=== PATIENT | male | born 1955 | race Caucasian/White ===

== ENCOUNTER 2017-03-23 18:22 | Emergency (ER) | payer OTHER ==
[~2017-03-23] VITALS: Ht 165.1 cm; Wt 78.9 kg
[2017-03-23 18:22] VITALS: BP 141/84
[2017-03-23] MEDS ORDERED: LISI10TA4 (18:39)
[2017-03-23] MEDS ORDERED: SIMV20TA2 (18:39)
[2017-03-23] MEDS ORDERED: ADACEL/BOOSTRIX VACCINE (DIPHTH/PERTUSS/ACELL/TETANUS)0.5ML SYR (90715) IM ONE (20:00)
[2017-03-23] MEDS ORDERED: KEFL500C17 PO (20:45)
== END 2017-03-23 20:53 | disposition home or self-care (01) ==
LOC: M ED 18:22
DX: S51.812A Laceration without foreign body of left forearm, initial encounter (principal); W27.0XXA Contact with workbench tool, initial encounter; Y92.099 Unspecified place in other non-institutional residence as the place of occurrence of the external cause; Y93.89 Activity, other specified; Y99.9 Unspecified external cause status; I10 Essential (primary) hypertension; E78.5 Hyperlipidemia, unspecified; Z79.899 Other long term (current) drug therapy

== ENCOUNTER → 2020-08-03 | Outpatient (CLI) | payer MEDICARE, OTHER ==
[~2020-08-03] MED LIST: ASPI81TA26 PO; KEFL500C17 PO; LISI10TA4; LISI10TA4 PO; SIMV20TA22; SIMV20TA22 PO
== END ==
LOC: M LABSMTC 10:39
PROVIDERS: ATTEND Anesthesiology
DX: Z01.812 Encounter for preprocedural laboratory examination (principal); Z20.822 Contact with and (suspected) exposure to COVID-19

== ENCOUNTER 2020-08-08 10:44 | Day surgery (SDC) | payer MEDICARE, OTHER ==
[~2020-08-08] VITALS: Ht 165.1 cm; Wt 76.7 kg
[~2020-08-08 10:44] MED LIST changes: +NS 1,000 ML IV ONE
--- OUTSIDE RECORDS SUMMARY | 2020-08-08 10:48 | CCD | Continuity of Care Document ---
Author Author Dakota FIERRO [facility] Organization Unknown Address [address] [place] [address] Phone [phone] Care Team Providers Care Dynamiter Name Role Phone Nara Fierro [facility] AUTM [phone] Problems Active Problems Provider Date Essential hypertension Alvino Yen D.O. Onset: 10/2010 Pure hypercholesterolemia Alvino eYn D.O. Onset: 02/12/2011 Social History Type Date Description Comments Sex Unknown ETOH Use Occasionally consumes beer Tobacco Use Start: Unknown End: Unknown Patient is a former smoker SMOKED FOR 12YRS 2 PAKS A DAY Recreational Drug Use Denies Drug Use Exercise Type/Frequency Exercises regularly 4-5 times weekly Guns in Home No Allergies, Adverse Reactions, Alerts Description No Known Drug Allergies Medications Active Medications SIG Qnty Indications Ordering Provide r Date Viagra 100mg Tablets one daily as needed before relations 15tabs N52.9 Lior Chavez MD [address] 1 po qd 100tabs Alvino Yen D.O. 08/12/2010 Lisinopril 10mg Tablets take one tablet by mouth every day 90tabs Lior Chavez MD 08/12/2010 Simvastatin 20mg Tablets take one tablet by mouth at bedtime 90tabs Lior Chavez MD 2010 Immunizations CPT Code Status Date Vaccine Lot # [id number] Given 03/25/2020 Shingrix Zoster Vaccine (HZV), Recombinant, Subunit, Adjuvanted 65337 Given 07/20/2019 Shingrix Zoster Vaccine (HZV), Recombinant, Subunit, Adjuvanted 65398 Given 01/11/2012 Pneumovax 23 [id number] Refused 04/25/2018 Influenza Virus Vaccine, Quadrivalent (Cciiv4), Derived From Cell Vital Signs Date Vital Result Comment 07/03/2020 8:04am BP Systolic 126 mmHg RT Arm BP Diastolic 78 mmHg RT Arm Heart Rate 64 /min Height 64.50 inches 5'4.50" Weight 174.00 lb BMI (Body Mass Index) 29.4 kg/m2 11/20/2019 1:44pm BP Systolic 130 mmHg BP Diastolic 78 mmHg Heart Rate 63 /min Height 64.50 inches 5'4.50" Weight 174.00 lb BMI (Body Mass Index) 29.4 kg/m2 Results Test Acquired Date Facility Test Result H/L Range Note Complete Blood Count 07/03/2020 [place] [facility] [employer] [facility]: [place] [address] [phone] WBC 9.0 x10*3/UL 4.1 - 10.9 RBC 4.70 x10*6/UL 4.20 - 6.30 Hemoglobin 15.4 g/dL 12.0 - 18.0 Hematocrit 43.1 % 37.0 - 51.0 MCV 91.5 fL 80.0 - 97.0 MCH 32.7 pg High 26.0 - 32.0 MCHC 35.7 g/dL 31.0 - 38.0 RDW 12.6 % 11.6 - 13.7 PLT 262 x10*3/UL 140 - 440 MPV 7.4 FL Low 7.8 - 11.0 Lymph % 20.3 % 10.0 - 58.5 Mid % 6.0 % 1.7 - 9.3 Neut % 73.7 % 37.0 - 92.0 Lymph # 1.8 x10*3/UL 0.6 - 4.1 Mid # 0.6 x10*3/UL 0.1 - 0.6 Neut # 6.6 x10*3/UL 2.0 - 7.8 Comprehensive Chem Profile 07/03/2020 [facility]: [place] [address] [phone] Glucose 96 mg/dL 74 - 99 1 BUN 20 mg/dL High 7 - 18 Creatinine 1.3 mg/dL 0.6 - 1.3 Sodium 141 mEq/L 136 - 145 Potassium 4.2 mEq/L 3.5 - 5.1 Chloride 105 mEq/L 98 - 107 Carbon Dioxide 28 mEq/L 21 - 32 Calcium 8.5 mg/dL 8.5 - 10.1 Alk. Phosphatase 67 mg/dL 46 - 116 Total Bilirubin 0.5 mg/dL 0.2 - 1.0 Ast (Sgot) 25 U/L 15 - 37 Alt (SGPT) 44 U/L 12 - 78 Albumin 4.1 g/dL 3.4 - 5.0 Total Protein 6.8 g/dL 6.4 - 8.2 A/G Ratio 1.52 CALC 1.00 - 1.90 GFR 55 mL/min Low >60 GFR >= 60 mL/min >60 2 Lipid Profile 07/03/2020 [facility] , Rn Corrections: Dr Lior Chavez [place], [place] [id number] [phone] Cholesterol 156 mg/dL 131 - 200 Triglycerides 51 mg/dL 30 - 150 HDL Cholesterol 41 mg/dL 35 - 60 LDL (Calculated) 105 CALC 50 - 159 Laboratory test finding 07/03/2020 [facility] Rn Corrections: [place] [address] [phone] PSA 0.41 ng/mL <4.00 3 1 100-125 mg/dL PRE-DIABET ES/FASTING >126 mg/dL DIABETES/FASTING 2 CHRONIC KIDNEY DISEASE STAGI NG PER NKF STAGE I & II GFR >= 60 NORMAL TO MILDLY DECREASED STAGE III GFR 30-59 MODERATELY DECREASED STAGE IV GFR 15-29 SEVERELY DECREASED STAGE V GFR <15 VERY LITTLE GFR LEFT ESRD GFR <15 ON PRINTED CIRCUIT BOARDS SOLDER LEVELER 3 This assay was performed on the [employer] EXL using the B- Galactosidase/CPRG methodology and should not be compared interchangeably with other methods. The PSA should not be used alone as a screening test for the presence or absence of malignant disease. Procedures Date Code Description Status 11/12/2008 52857325 Colonoscopy Completed Medical Devices Description No Information Available Encounters Description No Information Available Assessments Date Code Description Provider 07/03/2020 N52.9 Male erectile dysfunction, unspe cified BRIGITTE Morales 07/03/2020 I10 Essential (primary) hypertension Nara Fierro [facility] 07/03/2020 E78.00 Pure hypercholesterolemia, unspe cified Nara Fierro, PLAYER DEVELOPMENT EXECUTIVE 07/03/2020 L71.9 Rosacea, unspecified Nara Mars ra, [facility] 07/03/2020 R39.15 Urgency of urination Nara Mars ra, [facility] 07/03/2020 E66.3 Overweight Nara Fierro, F ENVIRONMENTAL GEOLOGIST Plan of Treatment Future Appointment(s):* 07/09/2021 7:40 am - Nurse #2 at [facility] * 07/09/2021 8:00 am - BRIGITTE Morales at [facility] 07/03/2020 - BRIGITTE Morales* N52.9 Male erectile dysfunction, unspecified* New Medication:* Viagra 100 mg - one daily as needed before relations * Comments:* Trial Viagra. Given a good RX card as I explained most insurance companies do not cover this. * I10 Essential (primary) hypertension* Comments:* BP at goal. Continue Lisinopril. BMP is pending. Should periodically take BPs outside of the office. * Recommendations:* Weight loss is recommended. DASH diet is recommended, regular exercise, and balanced diet with several fresh fruits and vegetables. * E78.00 Pure hypercholesterolemia, unspecified* Comments:* Check lipids today. Continues on Simvastatin. Encouraged Mediterranean diet; Low fat/high fiber diet encouraged coupled with regular exercise. * L71.9 Rosacea, unspecified* Comments:* No longer using Metronidazole and skin is clear. * R39.15 Urgency of urination* Comments:* Check PSA. Occasional. * E66.3 Overweight* Comments:* Weight loss would be favorable- portion control, balanced diet and regular exercise are encouraged. * All * Comments:* Needs to repeat colonoscopy. Follow up in one year with repeat labs at that time.Encouraged balanced diet, 4-5 servings of fresh fruits and vegetables daily. Recommended at least 30 minutes of exercise daily and eight 8 oz. glasses of water daily.Testicular self exams encouraged monthly.RTC PRN for acute illness. COVID precautions are discussed and social distancing/mask use/ frequent hand washing and sanitizing are encouraged. Functional Status Description No Information Available Mental Status Description No Information Available Referrals Description No Information Available
--- OUTSIDE RECORDS SUMMARY | 2020-08-08 10:48 | CCD | Continuity of Care Document ---
Author Author Dakota ORTIZ MD Organization Unknown Address [address] [place] [address] Phone [phone] Care Team Providers Care Staff Psychiatrist Name Role Phone Nara Fierro AUTM [phone] Problems Active Problems Provider Date Essential hypertension Tristen Pereira NP Onset: 07/09/2020 Social History Type Date Description Comments Sex Unknown ETOH Use Occasionally consumes alcohol Recreational Drug Use Denies Drug Use Tobacco Use Start: Unknown End: Unknown Patient is a former smoker QUIT 1980 Allergies, Adverse Reactions, Alerts Description No Known Drug Allergies Medications Active Medications SIG Qnty Indications Ordering Provide r Date Lisinopril 10mg Tablets 1 qd Unknown Simvastatin 20mg Tablets 1 qd Unknown Aspirin 81mg Tablets DR 1 by mouth every day Unknown Viagra 100mg Tablets 1 prn Unknown Immunizations Description No Information Available Vital Signs Date Vital Result Comment 07/24/2020 11:18am BP Systolic 146 mmHg BP Diastolic 88 mmHg Height 65 inches 5'5" Weight 173.00 lb BMI (Body Mass Index) 28.8 kg/m2 [place] Body Weight 136 lb Weight 78.473 kg BSA (Body Surface Area) 1.86 m2 Results Description No Information Available Procedures Description No Information Available Medical Devices Description No Information Available Encounters Description No Information Available Assessments Description No Information Available Plan of Treatment No Information Available Functional Status Description No Information Available Mental Status Description No Information Available Referrals Refer to Reason for Referral Status Appt Date Navin Ortiz JR, MD SCHEDULE SCOPE. Scheduled [address] [place] [id number] [phone]
--- OUTSIDE RECORDS SUMMARY | 2020-08-08 10:48 | CCD | Continuity of Care Document ---
Author Author Dakota FIERRO [facility] Organization Unknown Address [address] [place] [address] Phone [phone] Care Team Providers Care Non Destructive Evaluation Manager Name Role Phone Nara Fierro [facility] AUTM [phone] Problems Active Problems Provider Date Essential hypertension [...] CPT Code Status Date Vaccine Lot # [id number] Given 03/25/2020 Shingrix Zoster Vaccine (HZV), Recombinant, Subunit, Adjuvanted 18555 Given 07/20/2019 Shingrix Zoster Vaccine (HZV), Recombinant, Subunit, Adjuvanted 15313 Given 01/11/2012 Pneumovax 23 [id number] Refused 04/25/2018 Influenza Virus Vaccine, Quadrivalent (Cciiv4), [...] H/L Range Note Complete Blood Count 07/03/2020 [place] [employer] [facility] Index Clerk: [place] [address] [phone] WBC 9.0 x10*3/UL 4.1 - 10.9 RBC [...] 2.0 - 7.8 Comprehensive Chem Profile 07/03/2020 [facility] Index Clerk: [place] [address] [phone] Glucose 96 mg/dL 74 - 99 1 [...] 60 mL/min >60 2 Lipid Profile 07/03/2020 [place] [facility] , Index Clerk: Dr Lior Chavez [place], [place] [id number] [phone] Cholesterol 156 mg/dL 131 - 200 Triglycerides 51 mg/dL 30 - 150 HDL Cholesterol 41 mg/dL 35 - 60 LDL (Calculated) 105 CALC 50 - 159 Laboratory test finding 07/03/2020 [facility] Index Clerk: [place] [address] [phone] PSA 0.41 ng/mL <4.00 3 1 100-125 mg/dL PRE-DIABET ES/FASTING >126 mg/dL DIABETES/FASTING 2 CHRONIC KIDNEY DISEASE STAGI NG PER NKF STAGE I & II GFR >= 60 NORMAL TO MILDLY DECREASED STAGE III GFR 30-59 MODERATELY DECREASED STAGE IV GFR 15-29 SEVERELY DECREASED STAGE V GFR <15 VERY LITTLE GFR LEFT ESRD GFR <15 ON GROCERY SACKER 3 This assay was performed on the [employer] EXL using the B- Galactosidase/CPRG methodology and should not be compared interchangeably with other methods. The PSA should not be used alone as a screening test for the presence or absence of malignant disease. Procedures Date Code Description Status 11/12/2008 [id number] Colonoscopy Completed Medical Devices Description No Information Available Encounters Type Date Location Provider Dx Diagnosis Office Visit 07/03/2020 8:00a [facility], BRIGITTE Z00.00 Encntr for general adult medical exam w/ o abnormal findings N52.9 Male erectile dysfunction, u nspecified I10 Essential (primary) hyperten zachary E78.00 Pure hypercholesterolemia, u nspecified L71.9 Rosacea, unspecified R39.15 Urgency of urination E66.3 Overweight Z68.29 Body mass index [BMI] 29.0-2 9.9, adult Z12.5 Encounter for screening for malignant neoplasm of prostate Z13.89 Encounter for screening for other disorder Assessments Date Code Description Provider 07/03/2020 Z00.00 Encounter for genera l adult medical examination without abnormal findings Nara Fierro, [facility] 07/03/2020 N52.9 Male erectile dysfunction, unspe cified Nara Fierro, [facility] 07/03/2020 I10 Essential (primary) hypertension Nara Fierro, [facility] 07/03/2020 E78.00 Pure hypercholesterolemia, unspe cified Nara Fierro, [facility] 07/03/2020 L71.9 Rosacea, unspecified Nara Mars ra, PHILOSOPHY FACULTY 07/03/2020 R39.15 Urgency of urination Nara Mars ra, [facility] 07/03/2020 E66.3 Overweight Nara Fierro, F FISHER DIP NET 07/03/2020 Z68.29 Body mass index [BMI] 29.0-29.9, adult AROLDO MoralesP 07/03/2020 Z12.5 Encounter for screening for anand gnant neoplasm of prostate Nara Fierro [facility] 07/03/2020 Z13.89 Encounter for screening for othe r disorder BRIGITTE Morales Plan of Treatment Future Appointment(s):* 07/09/2021 7:40 am - Nurse #2 at [facility] * 07/09/2021 8:00 am - BRIGITTE Morales at [facility] 07/03/2020 - BRIGITTE Morales* Z00.00 Encounter for general adult medical examination without abnormal findings * N52.9 Male erectile dysfunction, unspecified* New Medication:* [...] diet and regular exercise are encouraged. * Z68.29 Body mass index [BMI] 29.0-29.9, adult * Z12.5 Encounter for screening for malignant neoplasm of prostate * Z13.89 Encounter for screening for other disorder * All * Comments:* Needs to repeat [...] frequent hand washing and sanitizing are encouraged. * Referral:* Navin Ortiz JR, MD, Surgery,General Functional Status Description No Information Available Mental Status Description No Information Available Referrals Refer to Dr Reason for Referral Status Appt Date Navin Ortiz JR, MD CONSULT WITH DR ORTIZ FOR SCREENING COLONOSCOPY Patient Notified 07/17/2020 [facility] General Surgery [address] [address] [phone]
--- OUTSIDE RECORDS SUMMARY | 2020-08-08 10:49 | CCD | Continuity of Care Document ---
Author Author Dakota FIERRO [facility] Organization Unknown Address [address] [place] [address] Phone [phone] Care Team Providers Care Limo Driver Name Role Phone Nara Fierro [facility] AUTM [phone] Problems Active Problems Provider Date Essential hypertension Alvino Yen D.O. Onset: 10/2010 Pure hypercholesterolemia Alvino Yen D.O. Onset: 02/12/2011 Social History Type Date [...] CPT Code Status Date Vaccine Lot # [id number] Given 03/25/2020 Shingrix Zoster Vaccine (HZV), Recombinant, Subunit, Adjuvanted 22905 Given 07/20/2019 Shingrix Zoster Vaccine (HZV), Recombinant, Subunit, Adjuvanted 29607 Given 01/11/2012 Pneumovax 23 [id number] Refused 04/25/2018 Influenza Virus Vaccine, Quadrivalent (Cciiv4), [...] Date Facility Test Result H/L Range Note Laboratory test finding 07/03/2020 [facility] [employer] Operation Machine Operator [facility] Rn: Dr Lior Chavez [place], [place] [id number] [phone] PSA <pending> Procedures Date Code Description Status 11/12/2008 [id number] Colonoscopy Completed Medical Devices Description No Information Available Encounters Description No Information Available Assessments Date Code Description Provider 07/03/2020 N52.9 Male erectile dysfunction, unspe cified Nara Fierro, [facility] 07/03/2020 I10 Essential (primary) hypertension Nara Fierro [facility] 07/03/2020 E78.00 Pure hypercholesterolemia, unspe cified Nara Fierro, [facility] 07/03/2020 L71.9 Rosacea, unspecified Nara Mars ra [facility] 07/03/2020 R39.15 Urgency of urination Nara Mars ra [facility] 07/03/2020 E66.3 Overweight Zakia Morales PHOTOGRAPHIC SPOTTER Plan of Treatment 07/03/2020 - Nara Fierro [facility]* N52.9 Male erectile dysfunction, unspecified* New Medication:* Viagra 100 mg - one daily as needed before relations * I10 Essential (primary) hypertension* Comments:* BP [...] balanced diet and regular exercise are encouraged. Functional Status Description No Information Available Mental Status Description No Information Available Referrals Description No Information Available
--- NOTE | 2020-08-08 13:26 | ROOR ---
Patient Name: Dakota Harmon Procedure Date: 08/08/2020 1:10 PM Date of : 1955 Age: 65 Room: [facility] Gender: Male Note Status: Finalized Procedure: Colonoscopy Indications: Screening for colorectal malignant neoplasm Providers: Navin Ortiz Jr, MD Referring MD: Nara Fierro NP Requesting Provider: Medicines: Propofol per Anesthesia Complications: No immediate complications. Procedure: Pre-Anesthesia Assessment: - Prior to the procedure, a History and Physical was performed, and patient medications and allergies were reviewed. The patient is competent. The risks and benefits of the procedure and the sedation options and risks were discussed with the patient. All questions were answered and informed consent was obtained. Patient identification and proposed procedure were verified by the physician and the nurse in the pre-procedure area and in the procedure room. Mental Status Examination: alert and oriented. Airway Examination: normal oropharyngeal airway and neck mobility. Respiratory Examination: clear to auscultation. CV Examination: normal. ASA Grade Assessment: II - A patient with mild systemic disease. After reviewing the risks and benefits, the patient was deemed in satisfactory condition to undergo the procedure. The anesthesia plan was to use moderate sedation / analgesia (conscious sedation). Immediately prior to administration of medications, the patient was re-assessed for adequacy to receive sedatives. The heart rate, respiratory rate, oxygen saturations, blood pressure, adequacy of pulmonary ventilation, and response to care were monitored throughout the procedure. The physical status of the patient was re-assessed after the procedure. The Colonoscope was introduced through the anus and advanced to the cecum, identified by appendiceal orifice and ileocecal valve. The colonoscopy was performed without difficulty. The patient tolerated the procedure well. The quality of the bowel preparation was adequate. Findings: The rectum, recto-sigmoid colon, descending colon, transverse colon, ascending colon, cecum, appendiceal orifice and ileocecal valve appeared normal. Multiple small and large-mouthed diverticula were found in the sigmoid colon. Impression: - The rectum, recto-sigmoid colon, descending colon, transverse colon, ascending colon, cecum, appendiceal orifice and ileocecal valve are normal. - Diverticulosis in the sigmoid colon. - No specimens collected. Recommendation: - Discharge patient to home (ambulatory). - Repeat colonoscopy in 10 years for screening purposes. Procedure Code(s): --- Professional --- 36255, Colonoscopy, flexible; diagnostic, including collection of specimen(s) by brushing or washing, when performed (separate procedure) Diagnosis Code(s): --- Professional --- Z12.11, Encounter for screening for malignant neoplasm of colon K57.30, Diverticulosis of large intestine without perforation or abscess without bleeding CPT copyright 2019 [employer]. All rights reserved. The codes documented in this report are preliminary and upon clinical coder review may be revised to meet current compliance requirements. Navin Ortiz MD Navin Ortiz Jr, MD 08/08/2020 1:25:57 PM Electronically signed by Navin Ortiz Jr, MD Number of Addenda: 0 Note Initiated On: 08/08/2020 1:10 PM Estimated Blood Loss: Estimated blood loss: none.
[2020-08-08] MEDS ORDERED: propofoL 200 MG/20 ML VIAL As Ordered ONE (13:40)
[2020-08-08] MEDS ORDERED: LIDOCAINE 2% 100MG/5ML SDV (FOR ANES.) As Ordered ONE (13:40)
[2020-08-08 13:55] VITALS: BP 178/74
== END 2020-08-08 14:11 | disposition home or self-care (01) ==
LOC: M OPP 10:44
PROVIDERS: ATTEND Surgery
DX: Z12.11 Encounter for screening for malignant neoplasm of colon (principal); K57.30 Diverticulosis of large intestine without perforation or abscess without bleeding; I10 Essential (primary) hypertension; E78.5 Hyperlipidemia, unspecified; Z79.82 Long term (current) use of aspirin; Z79.899 Other long term (current) drug therapy

== ENCOUNTER → 2021-08-07 | Outpatient (CLI) | payer MEDICARE, OTHER ==
[~2021-08-07] MED LIST changes: +LISI10TA22; +LISI10TA22 PO; -LISI10TA4; -LISI10TA4 PO; -NS 1,000 ML IV ONE
== END ==
LOC: M WUC 09:11
PROVIDERS: ATTEND Registered Nurse
DX: M19.011 Primary osteoarthritis, right shoulder (principal)

== ENCOUNTER → 2021-08-22 | Outpatient (CLI) | payer MEDICARE, OTHER | LOC: M RAD 10:03 | PROVIDERS: ATTEND Registered Nurse | DX: Z12.2 Encounter for screening for malignant neoplasm of respiratory organs (principal); F17.201 Nicotine dependence, unspecified, in remission ==

== ENCOUNTER → 2024-07-06 | Outpatient (CLI) | payer MEDICARE, OTHER | LOC: M WUC 12:48 | PROVIDERS: ATTEND Physician Assistant Medical | DX: Z87.891 Personal history of nicotine dependence (principal) ==